=== PATIENT | male | born 1960 | race Caucasian/White ===

== ENCOUNTER 2017-03-26 08:02 | Inpatient (IN) | payer MEDICAID ==
[~2017-03-26] VITALS: Ht 182.9 cm; Wt 89.8 kg
[~2017-03-26 08:02] MED LIST: CARV12.52 PO; LISI5TAB7 PO; SPIR25TA PO
[2017-03-26] MEDS ORDERED: ASPIRIN 81 MG TABLET CHEW PO ONE (09:00)
[2017-03-26] MEDS ORDERED: SODIUM CHLORIDE FLUSH 10ML SYR IVF ONE (09:00)
[2017-03-26] MEDS ORDERED: FUROSEMIDE 40 MG/4 ML IV ONE (09:00)
[2017-03-26] MEDS ORDERED: FUROSEMIDE 40 MG/4 ML ONE (09:17)
[2017-03-26] MEDS ORDERED: ASPIRIN 81 MG TABLET CHEW ONE (09:17)
[2017-03-26 09:42] LABS: BLOOD UREA NITROGEN 29 mg/dL (7-18)
[2017-03-26 09:47] LABS: IS PT STATUS REG ER OR PRE ER? YES
[2017-03-26 09:53] LABS: ASPARTATE AMINO TRANSFERASE 28 U/L (15-37)
[2017-03-26] MEDS ORDERED: ENOXAPARIN 40 MG/0.4 ML SQ SCH (11:30)
[2017-03-26] MEDS ORDERED: ONDANSETRON 2MG/ML, 2ML IV PRN (11:30)
[2017-03-26] MEDS ORDERED: POTASSIUM CHLORIDE 20 MEQ TAB.ER.PRT PO SCH ×2 (11:30→21:00)
[2017-03-26] MEDS ORDERED: ACETAMINOPHEN 650 MG/20.3 ML UDC PO PRN (11:30)
[2017-03-26] MEDS ORDERED: NITROGLYCERIN 0.4 MG BOTTLE (25 TABS) SL PRN (11:30)
[2017-03-26 12:22] LABS: IS PT STATUS REG ER OR PRE ER? NO
[2017-03-26] MEDS ORDERED: MORPHINE SULFATE 4 MG/ML, 1ML IVPush PRN (13:00)
[2017-03-26 13:08] LABS: DAU SCREEN DISCLAIMER
[2017-03-26] MEDS ORDERED: POTASSIUM CHLORIDE 20 MEQ TAB.ER.PRT PO ONE (14:00)
[2017-03-26 14:19] VITALS: BP 134/103
[2017-03-26 14:42] VITALS: BP 127/92
[2017-03-26] MEDS ORDERED: SODIUM CHLORIDE FLUSH 10ML SYR IVF SCH (21:00)
[2017-03-26] MEDS ORDERED: FUROSEMIDE 20 MG/2 ML IVPush SCH (21:00)
[2017-03-27] MEDS ORDERED: ASPIRIN 81 MG TABLET EC PO SCH ×2 (06:00)
[2017-03-27] MEDS ORDERED: FAMOTIDINE 20 MG TABLET PO SCH (09:00)
[2017-03-27] MEDS ORDERED: DOCUSATE 100 MG CAPSULE PO SCH (09:00)
== END 2017-03-26 16:15 | disposition left against medical advice (07) | DRG 917 ==
LOC: ED 10:14 → EDIP 10:15 → ED 10:24 → 5SO 12:19
PROVIDERS: ADMIT Family Medicine; ATTEND Family Medicine
DX: T43.621A Poisoning by amphetamines, accidental (unintentional), initial encounter (principal); I50.23 Acute on chronic systolic (congestive) heart failure; N17.9 Acute kidney failure, unspecified; I11.0 Hypertensive heart disease with heart failure; B19.20 Unspecified viral hepatitis C without hepatic coma; K42.9 Umbilical hernia without obstruction or gangrene; F17.210 Nicotine dependence, cigarettes, uncomplicated; N28.9 Disorder of kidney and ureter, unspecified; Z51.5 Encounter for palliative care; Z53.21 Procedure and treatment not carried out due to patient leaving prior to being seen by health care provider; R53.83 Other fatigue; I44.7 Left bundle-branch block, unspecified; F15.10 Other stimulant abuse, uncomplicated; Z71.51 Drug abuse counseling and surveillance of drug abuser; Z79.899 Other long term (current) drug therapy; Z91.19 Patient's noncompliance with other medical treatment and regimen; Y92.89 Other specified places as the place of occurrence of the external cause
CPT/HCPCS: 36415; 71010; 80053; 80061; 80307; 83880; 84443; 84484; 85025; 85610; 93005; 96374; J1650; J1940

== ENCOUNTER 2018-09-06 03:12 | Emergency (ER) | payer MEDICAID ==
[~2018-09-06] VITALS: Ht 182.9 cm; Wt 88.7 kg
[2018-09-06] MEDS ORDERED: LISI-167 PO (03:23)
[2018-09-06] MEDS ORDERED: FURO-93 PO (03:23)
[2018-09-06] MEDS ORDERED: SODIUM CHLORIDE FLUSH 10ML SYR IVF ONE (04:00)
[2018-09-06 04:11] LABS: BASOPHILS # (AUTO) 0.06 x10^3/uL (0-0.1); BASOPHILS % (AUTO) 1 % (0-1); EOSINOPHILS # (AUTO) 0.13 x10^3/uL (0-0.4); EOSINOPHILS % (AUTO) 1 % (1-7); LYMPHOCYTES # (AUTO) 1.49 x10^3/uL (1-3.4); LYMPHOCYTES % (AUTO) 14 % (22-44); MD NO; MEAN CORPUSCULAR HEMOGLOBIN 26.5 pg (27.5-34.5); MEAN CORPUSCULAR HGB CONC 31.7 g/dL (33.2-36.2); MEAN CORPUSCULAR VOLUME 83.3 fL (81-97); MEAN PLATELET VOLUME 8.4 fL (7.4-10.4); MONOCYTES # (AUTO) 0.98 x10^3/uL (0.2-0.8); MONOCYTES % (AUTO) 9 % (2-9); NEUTROPHILS # (AUTO) 8.34 x10^3/uL (1.8-6.8); NEUTROPHILS % (AUTO) 76 % (42-75); PLATELET COUNT 291 x10^3/uL (130-400); RED BLOOD COUNT 5.08 x10^6/uL (4.38-5.82); RED CELL DISTRIBUTION WIDTH 14.9 % (9.4-14.8)
[2018-09-06 04:15] LABS: ALANINE AMINOTRANSFERASE 27 U/L (12-78); ANION GAP 8 mmol/L (5-15); CALCIUM 8.4 mg/dL (8.5-10.1); CHLORIDE 109 mmol/L (98-107); CREATININE 1.13 mg/dL (0.7-1.3)
[2018-09-06 04:19] LABS: ALKALINE PHOSPHATASE 122 U/L (45-117); BILIRUBIN,TOTAL 1.1 mg/dL (0.2-1.0); TOTAL PROTEIN 6.8 g/dL (6.4-8.2); TROPONIN I 0.031 ng/mL (0.000-0.045)
[2018-09-06 04:21] LABS: INTERNATIONAL NORMALIZED RATIO 1.16 (0.93-1.1); PROTHROMBIN TIME 12.2 Seconds (9.6-11.5)
[2018-09-06] MEDS ORDERED: FUROSEMIDE 40 MG TABLET ONE (05:17)
[2018-09-06] MEDS ORDERED: ALBUTEROL/IPRATROPIUM 2.5MG/0.5MG, 3 ML ONE (05:18)
[2018-09-06] MEDS: ALBUTEROL/IPRATROPIUM 2.5MG/0.5MG, 3 ML NPPB SCH ×2 (05:20→05:25)
[2018-09-06] MEDS ORDERED: ALBUTEROL SULFATE 2.5 MG/3 ML NPPB PRN (06:00)
[2018-09-06 06:03] VITALS: BP 136/84
[2018-09-06] MEDS ORDERED: FUROSEMIDE 40 MG TABLET PO SCH (09:00)
== END 2018-09-06 06:18 | disposition home or self-care (01) ==
LOC: ED 03:58
DX: J15.9 Unspecified bacterial pneumonia (principal); I11.0 Hypertensive heart disease with heart failure; I50.9 Heart failure, unspecified
CPT/HCPCS: 36415; 71046; 80053; 83880; 84484; 85025; 85610; 85730; 93005; 94640; 99284; J7512; J7620